=== PATIENT | female | born 1930 | race Caucasian/White ===

== ENCOUNTER 2016-09-01 07:00 | Day surgery (SDC) | payer MEDICARE ==
[~2016-09-01] VITALS: Ht 162.6 cm; Wt 51.3 kg
[~2016-09-01 07:00] MED LIST: CALC600T12 PO; FLUT15.88 NS; LISI10TA PO; LUTE1CAP PO; Lactated Ringer's 1,000 ML IV ONE; MELO7.5O PO; OMEG1CAP56 PO; OMEP10CA4 PO; RED30POW MC; VIT1TABL83 PO
[2016-09-01] MEDS ORDERED: Propofol 10,000 mCg/mL 20 mL Inj ONE (07:01)
[2016-09-01] MEDS ORDERED: Ketamine 10 mg/mL 20 mL Inj ONE (07:01)
[2016-09-01 07:20] VITALS: BP 164/92; PULSE 79; RESP 12; O2SAT 97
[2016-09-01] MEDS ORDERED: Lactated Ringer's 1,000 ML IV SCH (07:44)
--- NOTE | 2016-09-01 07:44 | PCM.HPANE ---
Patient Data Surgeon Admitting Provider: Attending Provider:Sherwin Patel MD Primary Care Physician:Gisele Faria MD Other Provider:Teresita Jenkinsingham Anesthesia Reason for Visit GERD Ht/WT & BMI Height (Feet): 5 Height (Inches): 4 Weight (Kilograms): 51.26 Body Mass Index 19.00 Allergies Coded Allergies: Penicillins (Verified Allergy, Severe, 04/14/09) vancomycin (Verified Allergy, Severe, 04/14/09) Past Anesthesia History Anesthesia History: Denies:: Abnormal Airway, Anesthesia Reactions, Difficult Intubation, Fam Anesthesia Reaction, Fam Malignant Hypertherm, Malignant Hyperthermia Diabetes History Hx Diabetes?: No MRSA MRSA: No Medications Hypertension Medication: Yes Home Meds Incl Beta John: No Reported Medications Lutein Extract/Zeaxanthin Ext (Lutein 15 mg Softgel)1 Each Capsule1 Each PO DAILY 08/31/16 Vit B Comp/C/FA/Iron/Vit E (Vitamin B Complex Tablet)1 Each Tablet1 Each PO DAILY 08/31/16 Red Yeast Rice Extract (Red Yeast Rice)30 Gm Nilzha91 Gm MC BID 08/31/16 Omeprazole 10 Mg Capsule.dr10 Mg PO DAILY Ref 0 08/31/16 Mcdonald-3 Fatty Acids/Fish Oil (Mcdonald 3 1,000 mg Softgel)1 Each Capsule1 Each PO DAILY 08/31/16 Lisinopril 10 Mg Hukkiu93 Mg PO BID 30 Days Ref 0 08/31/16 Fluticasone Propionate 50 Mcg/Actuation [place].susp15.8 Ml NS DAILY 08/31/16 Calcium Carbonate (Calcium)600 Mg Shzipk599 Mg PO DAILY 08/31/16 Discontinued Reported Medications Meloxicam 7.5 Mg/5 Ml Oral.susp15 Mg PO DAILY 30 Days 08/31/16 History History of ENT Problems?: Yes HEENT History: Positive for:: Dysphagia (DYSPHAGIA W/ SOLIDS) Hearing Problem (MILD [place]) Denies:: Abnormal Airway Cataracts Difficult Intubation Sinus Problem Hx of Heart Problems?: Yes Cardiovascular History: Positive for:: Atrial Fibrillation (HX OF POST OPERATIVELY) Cardiac Surgery (aortic vavle replacement and heart cath) Congestive Heart Failure Edema Heart Murmur (AORTIC VALVE REPLACEMENT 04/30/07) Hypertension Irregular Heartbeat (post op) Valvular Heart Disease (AORTIC VALVE) Denies:: AICD Chest Pain Pacemaker Thrombophlebitis Hx of Respiratory Problem?: No Respiratory History: Positive for:: Asthma ( A CHILD) Chest Surgery (aortic valve replacement 04/30/07) Pneumonia (post operative) Denies:: COPD Dyspnea Emphysema Hemoptysis Tuberculosis Hx Neurologic Problems?: No Neurological History: Denies:: CVA Hx of GI Problems?: Yes Gastrointestinal History: Positive for:: Gastroesphageal Reflux Heartburn Hiatal Hernia Denies:: Cirrhosis Diverticulitis Gall Bladder Disease Gastrointestinal Bleeding Hepatitis Liver Disease Rectal Bleeding Hx of Problems?: No Female Hx: Denies:: Currently Endometriosis Pelvic Inflammatory Problems with Breasts? Hx Musculoskeletal Problems?: Yes Musculoskeletal History: Denies:: Back Injury Fibromyalgia Joint Replacement Musculoskeletal Trauma Hx of Psycho/Social Problems?: No Psycho Social History: Denies:: Anxiety Hx Depression Hx Surgeries?: Yes (AORTIC VALVE, COLON RESECTION, TONSIL) Hx Any Other Health Problems?: Yes Other History: Positive for:: Hospitalization (aortic valve replacement, rot cuff, hernia, ruptured bowel, rectocele) Denies:: Cancer Endocrine Disease Thyroid Disease History Blood Transfusions: Positive for:: Blood Transfusions Denies:: Blood Transfuse Reaction Hx Diabetes: No Hx Alcohol Use: YesHx Substance Use: No Stop/Bang Treated for Sleep Apnea?: No Do You Have a CPAP Machine?: No S-Snoring: Do You Snore Loudly: No T-Tired: feel tired, fatigued: No O-Obsered: Observed not breath: No P-Blood Pressure: treated: Yes B- Body Mass Index > 35 kg/m2: No A- Age over 50: Yes N- Neck Large Circumference: No G- Gender Male: No DOMINGUEZ Total Score: 2 DOMINGUEZ Risk Assessment: Low Risk, <3 Yes Risk Assessment Category Category 1A: Patient has history of documented sleep apnea, and HAS NOT received any narcotic, sedative or anesthesia administration during this stay. Category 1B: Patient has history of documented sleep apnea, and HAS received any narcotic , sedative or anesthesia administration during this stay Category 2: Patient has SUSPECTED Obstructive Sleep Apnea, and HAS received any narcotic , sedative or anesthesia administration during this stay. Category 3: Patient has SUSPECTED Obstructive Sleep Apnea and HAS NOT received narcotic, sedative or anesthesia administration during this stay. Category 4: Outpatient in Procedural Areas with known sleep apnea or who screen positive for High Risk via the STOP/BANG questionnaire. Exam Exam Vital Signs Vital Signs Date Time Temp Pulse Resp B/P Pulse Ox O2 Delivery O2 Flow Rate FiO2 09/01/16 07:20 37.3 79 12 164/92 97 Room Air General Appearance: Alert, Oriented X3, Cooperative, No Acute Distress HEENT/AIRWAY: MP 2 Lungs: Clear to Auscultation, Normal Air Movement Heart: Exam Unremarkable, Regular Rate/Rhythm, No Murmurs/Rubs/Gallops Meds/Labs/Diagnostics Admission Meds Current Medications Lactated Ringer's (Lr) 1,000 ml @ 10 mls/hr Q24H ONCE IV Last administered on 09/01/16 07:39; Start 09/01/16 at 06:00; Stop 09/02/16 at 05:59 Lidocaine HCl (Xylocaine Viscous 2% Soln 15mL) 15 ml ONCE ONCE PO Last administered on 09/01/16 07:39; Start 09/01/16 at 06:00; Stop 09/01/16 at 06:01 ; Status DC Plan Impression Patient chart reviewed, patient interviewed and anesthestic plan with risks, benefits, and alternatives discussed, and informed consent obtained. ASA Physical Status: ASA3 Severe Disease (Aortic valve replacement) Anesthetic Plan: MAC Bene/Risks/Altern/Consents: Yes HP Complete Prior to Induction: Yes London Leo MD Sep 01, 2016 07:44
[2016-09-01] MEDS ORDERED: Ondansetron 2 mg/mL 2 mL Inj IVPUSH PRN (07:45)
[2016-09-01] MEDS ORDERED: MetoCLOpramide 5 mg/mL 2 mL Inj IVPUSH PRN (07:45)
[2016-09-01 08:19] VITALS: BP 121/69; PULSE 76; RESP 14; O2SAT 97
[2016-09-01 08:29] VITALS: BP 128/76; PULSE 81; RESP 14; O2SAT 94
[2016-09-01 08:39] VITALS: BP 145/89; PULSE 76; RESP 14; O2SAT 96
--- NOTE | 2016-09-01 08:45 | ENDO ---
[address] [address] ENDOSCOPY PROCEDURE PATIENT: DEMIAN KEE : 1930 MR#: [id number] ADMIT: 09/01/2016 JOB ID: [id number] DATE OF SERVICE: 09/01/2016 PREOPERATIVE DIAGNOSIS: Gastroesophageal reflux disease. POSTOPERATIVE DIAGNOSIS: Large type 3 hiatal hernia. PROCEDURE: Upper endoscopy with biopsy. SURGEON: Sherwin Patel MD. INDICATIONS: An 86-year-old female with a known large type 3 hiatal hernia with worsening symptoms of gastroesophageal reflux and after discussing options with the patient, it was elected to proceed with an upper endoscopy. FINDINGS: She had a very large hiatal hernia. Her GE junction was at 30 cm from the incisors. The hiatus was somewhere around 40 cm. I would estimate more than half of her stomach is up in her chest. The pylorus was patent. I did biopsies, which I believe were of the antrum but actually may have been from the duodenum. The retroflexed views of the cardia revealed no masses or ulceration. There were no strictures. Biopsies of the GE junction were obtained. DESCRIPTION OF PROCEDURE: Sedation was provided by Dr. London Leo from anesthesia. After a procedural time-out, the GIF-H180J video endoscope was passed transorally, and it was difficult to get out of the stomach, as she has a large, J-shaped, herniated stomach but ultimately, I was but also when I did biopsies, which I labeled antrum, they may have actually been in the duodenum. Other than the large hiatal hernia there were no gross abnormalities. There was minimal bleeding. There were no apparent complications. PLAN: I have arranged for an esophageal manometry and then she will return to see me for followup.
--- NOTE | 2016-09-01 13:50 | PCM.ANEP1 ---
Post Anesthesia Phase 1 PACU Phase 1 Assessment Vital Signs Vital Signs Date Time Temp Pulse Resp B/P Pulse Ox O2 Delivery O2 Flow Rate FiO2 09/01/16 08:39 76 14 145/89 96 Room Air 09/01/16 08:29 81 14 128/76 94 Room Air 09/01/16 08:19 36.4 76 14 121/69 97 Room Air 09/01/16 07:20 37.3 79 12 164/92 97 Room Air Anesthetic Administered: MAC Level of Alertness: Awake, talking MCMULLEN's with Equal Strength: Yes Pain: No Nausea or Vomiting: No Oxygen Delivery: Nasal Cannula Lungs: Clear to Auscultation, Normal Air Movement Dermatome Level: Full Sensation London Leo MD Sep 01, 2016 13:50
--- NOTE | 2016-09-01 13:51 | PCM.ANEP2 ---
Post Anesthesia Evaluation ASA/CMS Post Anesthesia VS in Patient's Normal Range?: Yes Resp Stable; Airway Patent?: Yes CV Function & Hydration Stable: Yes Mental Status Recovered?: Yes Pain control Satisfactory?: Yes N/V Control Satisfactory?: Yes London Leo MD Sep 01, 2016 13:51
--- NOTE | 2016-09-02 10:55 | PATH ---
SURGICAL PATHOLOGY Attending Physician:Aminata Boswell CASE STATUS: Signed Out PATIENT NAME: DEMIAN KEE PID: [id number] : 1930 DATE COLLECTED:09/01/2016 16:48 SPECIMEN: 1: Stomach, Antrum, Biopsy 2: Esophagus, Biopsy CLINICAL HISTORY: 1). ANTRUM 2). DISTAL ESOPHAGUS FINAL DIAGNOSIS: 1.ANTRUM BIOPSY: FRAGMENTS OF DUODENUM MUCOSA WITH CHRONIC DUODENITIS. Negative for dysplasia and malignancy. No gastric epithelium identified. 2.DISTAL ESOPHAGUS BIOPSY: FRAGMENTS OF GASTRIC OXYNTIC-TYPE MUCOSA WITH MILD CHRONIC INFLAMMATION. Negative for specialized metaplasia of Domínguez' s-type esophagus. No squamous mucosa identified. Negative for dysplasia and malignancy. ICD10 code K29.80 GROSS DESCRIPTION: The specimen is received in two formalin filled containers labeled with the patient's name. 1). The specimen is labeled "antrum" and consists of 2 portions of tissue which aggregate to 0.3 x 0.2 x 0.2 CM. The specimen is entirely submitted in cassette 1A. 2). The specimen is sublabeled "distal esophagus" and consists of 2 portions of tissue which aggregate to 0.3 x 0.3 x 0.2 CM. The specimen is entirely submitted in cassettes 2A. 09/01/2016 [facility] MICRO DESCRIPTION: See diagnosis. ICD-9 CODES: CPT CODES: 1: 18194 2: 00053 Electronically Signed Out Carlos Peañloza MD [facility] Pathology [facility] [address], [place] [address] Technical component performed at [facility], [facility] [address], [address]
== END 2016-09-01 23:59 | disposition home or self-care (01) ==
LOC: END 07:00
PROVIDERS: ATTEND Surgery
DX: K44.9 Diaphragmatic hernia without obstruction or gangrene (principal); K29.80 Duodenitis without bleeding; K21.9 Gastro-esophageal reflux disease without esophagitis; I50.9 Heart failure, unspecified; I11.9 Hypertensive heart disease without heart failure; J45.909 Unspecified asthma, uncomplicated; E78.5 Hyperlipidemia, unspecified; Z95.2 Presence of prosthetic heart valve; Z85.828 Personal history of other malignant neoplasm of skin
CPT/HCPCS: 43239; 88305; J7120

== ENCOUNTER 2016-10-04 01:05 | Day surgery (SDC) | payer MEDICARE ==
[~2016-10-04 01:05] MED LIST changes: -Lactated Ringer's 1,000 ML IV ONE; -MELO7.5O PO
[2016-10-04] MEDS ORDERED: Lidocaine Topical 2% 30 mL Jelly ONE (10:15)
== END 2016-10-04 23:59 | disposition home or self-care (01) ==
LOC: END 01:05
PROVIDERS: ATTEND Surgery
DX: K44.9 Diaphragmatic hernia without obstruction or gangrene (principal); K22.8 Other specified diseases of esophagus; K21.9 Gastro-esophageal reflux disease without esophagitis